=== PATIENT | female | born 1980 | race Native Hawaiian/Other Pacific Islander ===

== ENCOUNTER → 2024-06-16 | Outpatient (CLI) | payer MEDICAID, SELFPAY ==
--- NOTE | 2024-06-16 14:45 | XR_ITS ---
Examination: Screening digital mammography, bilateral Computer aided detection 3-D breast Tomosynthesis, bilateral Date and time of exam: June 16, 2024 1514 hours Compared to mammograms dating to November 02, 2020 Indication: Screening Technique: Nonmagnified MLO, CC views of the breasts to been obtained, reconstructed from 3-D Tomosynthesis images. R2 computer aided detection program utilized for evaluation of suspicious masses and/or abnormal calcifications. 3-D Tomosynthesis images obtained. Findings: The breasts are heterogeneously dense, which may obscure small masses Stable 11 mm circumscribed nodule upper outer left breast Impression: BI-RADS Category 0: Incomplete: Need additional imaging evaluation Recommend repeat bilateral breast sonography follow-up to confirm stability of bilateral breast nodules described on breast sonogram 11/02/2020
== END | disposition home or self-care (01) ==
PROVIDERS: PCP Physician Assistant; Referring Provider Physician Assistant; Visit Provider Physician Assistant
DX: Z12.31 Encounter for screening mammogram for malignant neoplasm of breast (principal); R92.8 Other abnormal and inconclusive findings on diagnostic imaging of breast
CPT/HCPCS: 77063; 77067

== ENCOUNTER → 2025-01-19 | Outpatient (CLI) | payer MEDICAID, SELFPAY ==
[2025-01-18 09:12] LABS: Basophils # (Auto) 0.1 Thou/mm3 (0.0-0.2); Basophils % (Auto) 1 % (0-2.5); Eosinophils # (Auto) 0.2 Thou/mm3 (0.0-0.5); Eosinophils % (Auto) 2 % (0-10); Hematocrit 31.4 % (36.0-46.0); Hemoglobin 9.4 g/dL (12.0-16.0); Immature Granulocytes Auto 0.02 Thou/mm3 (0.00-0.00); Lymphocytes # (Auto) 1.9 Thou/mm3 (1.0-4.8); Lymphocytes % (Auto) 21 % (10-50); Mean Corpuscular HGB Conc 29.9 g/dl (31.0-37.0); Mean Corpuscular Hemoglobin 21.1 pg (25.0-35.0); Mean Corpuscular Volume 70 fL (80-100); Monocytes # (Auto) 0.5 Thou/mm3 (0.0-0.8); Monocytes % (Auto) 6 % (0-12); Neutrophils # (Auto) 6.3 Thou/mm3 (1.8-7.7); Neutrophils % (Auto) 71 % (37-80); Nucleated Red Blood Cell # 0.00 Thou/mm3 (0.00-0.00); Nucleated Red Blood Cell % 0 /100 WBC (0); Platelet Count 337 Thou/mm3 (140-440); RDW Standard Deviation 41.1 fL (36.4-46.3); Red Blood Count 4.46 Miln/mm3 (4.00-5.20); White Blood Count 8.9 Thou/mm3 (3.6-11.0)
[2025-01-18 09:32] LABS: INR 1.0 (0.9-1.3); Partial Thromboplastin Time 24.1 Seconds (22.0-36.0); Prothrombin Time 10.9 Seconds (9.0-12.2)
[2025-01-18 10:37] LABS: HCG,Qualitative Serum Negative
--- NOTE | 2025-01-19 08:30 | XR_ITS ---
EXAMINATION: Thyroid sonography complete TECHNIQUE: Grayscale sonographic images thyroid lobes Date and time: January 19, 2025, 2112 hours INDICATIONS: Swollen neck several months FINDINGS: Right thyroid 5.3 cm Lower pole nodule 1.5 x 1.8 x 1.4 cm Isthmus nodule 1.4 x 0.8 x 1.3 cm Left thyroid 4.9 cm Mid pole nodule 1.2 x 0.8 x 1.4 cm Lower pole nodule 2.2 x 0.9 x 1.4 cm IMPRESSION: Thyroid nodules as above
--- NOTE | 2025-01-19 09:00 | XR_ITS ---
Exam: Ultrasound-guided right thyroid biopsy. Date and time: 01/19/2025, 9:19 a.m. Indication: Thyroid nodule Technique: After a discussion of risks and benefits informed written consent was obtained. A timeout was completed verifying correct patient, procedure, site, positioning. The patient was placed in the supine position on the exam table. Preliminary ultrasound examination demonstrated a heterogeneous nodule in the right thyroid lobe. This was targeted for fine-needle aspiration. The overlying skin was cleaned and draped in normal sterile surgical fashion. 10 cc of 1% lidocaine was used for local anesthesia. Using ultrasound guidance a 25-gauge needle was sequentially advanced into the targeted mass. Multiple aspirates were obtained and placed in solution and sent to laboratory for analysis. The needle was withdrawn and hemostasis was achieved. The access site was covered with a sterile dressing. There were no immediate complications. IMPRESSION: Successful right thyroid nodule fine needle aspiration as above.
== END | disposition home or self-care (01) ==
PROVIDERS: Radiology Diagnostic Radiology; PCP Physician Assistant; Referring Provider Physician Assistant; Visit Provider Physician Assistant
DX: E04.9 Nontoxic goiter, unspecified (principal)
CPT/HCPCS: 36415; 76536; 84703; 85025; 85610; 85730